=== PATIENT | female | born 1990 | race American Indian/Alaskan Native ===

== ENCOUNTER 2019-04-15 21:42 | Emergency (ER) | payer OTHER ==
[2019-04-15 22:03] VITALS: BP 133/72
[2019-04-15] MEDS ORDERED: TYLENOL PO ONE (22:03)
[2019-04-15] MEDS ORDERED: TYLENOL ONE (22:07)
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
[2019-04-16] MEDS ORDERED: ULTRAM PO ONE (02:07)
== END 2019-04-16 03:05 | disposition home or self-care (01) ==
LOC: ED 21:42
DX: S16.1XXA Strain of muscle, fascia and tendon at neck level, initial encounter (principal); M25.531 Pain in right wrist; M25.532 Pain in left wrist; I10 Essential (primary) hypertension; F32.9 Major depressive disorder, single episode, unspecified; Z98.890 Other specified postprocedural states; Z79.899 Other long term (current) drug therapy; Z91.018 Allergy to other foods; V89.2XXA Person injured in unspecified motor-vehicle accident, traffic, initial encounter; Y93.89 Activity, other specified; Y92.488 Other paved roadways as the place of occurrence of the external cause; Y99.8 Other external cause status
CPT/HCPCS: 72040; 99283

== ENCOUNTER 2021-02-06 19:22 | Outpatient (CLI) | payer MEDICAID ==
[2021-02-06] MEDS ORDERED: LACTATED RINGERS 500 ML IV ONE (20:39)
[2021-02-06 21:15] VITALS: BP 128/70
[2021-02-06] MEDS: TERBUTALINE 1 MG/1 ML INJ SUB-Q PRN ×3 (21:30→22:12)
[2021-02-06 21:33] LABS: Bacteria,Urine 1+ /HPF (Negative); Bilirubin,Urine NEG (Negative); Blood,Urine NEG (Negative); Color,Urine Straw (Yellow); Protein,Urine <15 mg/dL mg/dL (Negative); RBC,Urine < 1.0 /HPF (0.0-6.0); Urobilinogen,Urine < 2.0 mg/dL (<2.0)
[2021-02-06] MEDS ORDERED: LACTATED RINGERS 1,000 ML IV ONE (21:54)
== END 2021-02-06 23:50 | disposition home or self-care (01) ==
LOC: TRG 19:22 → LD 19:53 → TRG 23:50
PROVIDERS: ATTEND Obstetrics & Gynecology
DX: O62.9 Abnormality of forces of labor, unspecified (principal); O99.013 Anemia complicating pregnancy, third trimester; D64.9 Anemia, unspecified; Z3A.32 32 weeks gestation of pregnancy; Z87.891 Personal history of nicotine dependence
CPT/HCPCS: 59025; 81001; 96360; 96372; J3105; J7120

== ENCOUNTER 2021-02-07 14:41 | Outpatient (CLI) | payer MEDICAID ==
[2021-02-07 15:02] VITALS: BP 121/59
[2021-02-07] MEDS ORDERED: LACTATED RINGERS 1,000 ML IV SCH (15:15)
[2021-02-07 16:14] LABS: Bacteria,Urine 4+ /HPF (Negative); Bilirubin,Urine NEG (Negative); Blood,Urine NEG (Negative); Color,Urine Straw (Yellow); Protein,Urine <15 mg/dL mg/dL (Negative); Urobilinogen,Urine < 2.0 mg/dL (<2.0)
[2021-02-07 16:34] LABS: Amphetamine Screen,Urine PRESUMPTIVE NEGATIVE; Benzodiazepines Screen,Urine PRESUMPTIVE NEGATIVE; Cannabinoid Screen,Urine PRESUMPTIVE NEGATIVE; Cocaine Screen,Urine PRESUMPTIVE NEGATIVE; Methadone Screen,Urine PRESUMPTIVE NEGATIVE; Opiate Screen,Urine PRESUMPTIVE NEGATIVE
== END 2021-02-07 17:58 | disposition home or self-care (01) ==
LOC: TRG 14:41 → APU 14:43 → TRG 17:58
PROVIDERS: ATTEND Obstetrics & Gynecology
DX: O62.9 Abnormality of forces of labor, unspecified (principal); O99.013 Anemia complicating pregnancy, third trimester; D64.9 Anemia, unspecified; Z87.891 Personal history of nicotine dependence; Z3A.32 32 weeks gestation of pregnancy
CPT/HCPCS: 59025; 80307; 81001; 96360; 96361; J7120

== ENCOUNTER 2021-02-21 14:18 | Outpatient (CLI) | payer MEDICAID ==
[2021-02-21] MEDS ORDERED: LACTATED RINGERS 1,000 ML IV SCH (15:00)
[2021-02-21 15:03] VITALS: BP 118/58
[2021-02-21 16:05] LABS: Bacteria,Urine 1+ /HPF (Negative); Bilirubin,Urine NEG (Negative); Blood,Urine NEG (Negative); Color,Urine Yellow (Yellow); Protein,Urine <15 mg/dL mg/dL (Negative)
[2021-02-21] MEDS ORDERED: TERBUTALINE 1 MG/1 ML INJ SUB-Q ONE (17:26)
== END 2021-02-21 19:15 | disposition home or self-care (01) ==
LOC: TRG 14:18 → APU 14:20 → TRG 19:15
PROVIDERS: ATTEND Obstetrics & Gynecology
DX: O62.9 Abnormality of forces of labor, unspecified (principal); O26.893 Other specified pregnancy related conditions, third trimester; M54.9 Dorsalgia, unspecified; O99.343 Other mental disorders complicating pregnancy, third trimester; F41.9 Anxiety disorder, unspecified; F32.9 Major depressive disorder, single episode, unspecified; Z3A.34 34 weeks gestation of pregnancy; Z87.891 Personal history of nicotine dependence
CPT/HCPCS: 81001; 96360; 96361; 96372; J3105; J7120; Q0177

== ENCOUNTER 2021-03-18 01:08 | Inpatient (IN) | payer MEDICAID ==
[2021-03-18] MEDS ORDERED: LACTATED RINGERS 1,000 ML ONE (02:03)
[2021-03-18] MEDS ORDERED: METOCLOPRAMIDE 10 MG/2 ML INJ IV ONE (02:16)
[2021-03-18] MEDS ORDERED: FAMOTIDINE 20 MG/2 ML INJ IV ONE (02:16)
[2021-03-18] MEDS ORDERED: BICITRA ORAL LIQD 30ML PO ONE (02:16)
--- NOTE | 2021-03-18 02:28 | History and Physical Report ---
History of Present Illness Date of examination: 03/18/21 Date of admission: 03/18/2021 Chief complaint: contractions History of present illness: EDC Confirmation: 03/30/2021 Past History : 3 Term Births: 1 Premature Births: 0 Living Children: 1 Para: 1 Mult. Births: 0 Prev : 1 Prev. attempt? 0 Aborta: 1 Elect. Ab: 0 Spont. Ab: 1 Ectopics: 0 # 1 Delivery date: 2018 Weeks Gestation: term Delivery type: Anesthesia type: epidural Delivery location: [place] Sex: Male weight: 7 Name: Nii Comments: placenta abruption # 2 Delivery date: 2018 Weeks Gestation: 20 labor: yes Delivery type: Delivery location: [facility] [place] Infant Sex: Male weight: ? Name: michelle Past Medical History: Negative Past Medical History Depression Past Surgical History: negative Past Medical History Anesthesia Complications: negative Anemia: negative Autoimmune Disorder: negative Bleeding Disorder: negative Blood Transfusions: negative Breast Disease: negative Diabetes: negative Heart Disease: negative Hypertension: negative Hepatitis/Liver Disease: negative Kidney Disease/UTI: negative Neurologic/Epilepsy/Migraines: negative Phlebitis/Varicosities: negative Psychiatric: negative Pulmonary Disease/Asthma: negative Thyroid Disease: negative Hospitalizations: negative Surgery (Non-executive secretary social welfare): negative Abnormal PAP: negative GUSTAVO Exposure: negative Infertility: negative Uterine Anomaly: negative Uterine Surgery (not C/S): negative Other Gynecologic Problems: negative Infection History Hx of STD: chlamydia HIV Risk Eval: no Hepatitis B Risk Eval: low risk Personal hx. of genital herpes: yes Partner hx. of genital herpes: no Rash, Viral, or Febrile illness since last LMP? no Varicella/Chicken Pox Status: Previous Disease Infection History Comments: Trich Genetic History Congenital Heart Defect: Mom: no Dad: no Irma Disease: Mom: no Dad: no Thalassemia Mom: no Dad: no Neural Tube Defect Mom: no Dad: no Down's Syndrome Mom: no Dad: no Ra-Sachs Mom: no Dad: no Sickle Cell Disease/Trait Mom: yes Dad: no Comments: pt is NOT aware of this FOC status Hemophilia Mom: no Dad: no Muscular Dystrophy Mom: no Dad: no Cystic Fibrosis Mom: no Dad: no Kayleigh Chorea Mom: no Dad: no Mental Retardation Mom: no Dad: no Fragile X Mom: no Dad: no Other Genetic/Chromosomal Disorder Mom: no Dad: no Child w/other defect Mom: yes Dad: no Comments/Counseling: Son has SCD This baby's daddy was SCT + Enviromental Exposures Xray Exposure: no Medication, drug, or alcohol use since LMP: no Chemical/Other Exposure: no Exposure to Cat Liter: no Hx of Parvovirus (Fifth Disease): no Occupational Exposure to Children: none Active Medications (reviewed today): None Current Allergies (reviewed today): * DOGS (Critical) * SEASONAL ALLERGIES (Critical) * PINEAPPLE (Critical) * KIWI (Critical) * WALNUTS (Critical) Past History Past Medical History: other (see HPI) Past Surgical History: other (see HPI) 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) Family/Genetic History: other (see HPI) Social history: other (see HPI) - Obstetrical History Expected Date of Delivery: 03/30/21 Actual Gestation: 38 Week(s) 2 Day(s) : 3 Para: 1 Hx # Term Pregnancies: 1 Number of Pregnancies: 0 Spontaneous Abortions: 1 Induced : 0 Number of Living Children: 1 Medications and Allergies Allergies Allergy/AdvReac Type Severity Reaction Status Date / Time kiwi Allergy Itching Verified 04/15/19 22:00 pineapple [Pineapple] Allergy Itching Verified 04/15/19 22:00 Active Meds: Active Medications Citric Acid/Sodium Citrate (Bicitra Oral Liqd 30ml) 30 ml PO ONCE ONE Stop: 03/18/21 02:17 Cefazolin Sodium (Ancef/Sterile Water 2 Gm/20 Ml) 2 gm in 20 mls @ 80 mls/hr IV PREOP NR; Protocol Stop: 03/18/21 10:00 Lactated Ringer's (Lactated Ringers) 1,000 mls @ 2,250 mls/hr IV PREOP CAR Stop: 03/19/21 02:57 Oxytocin/Sodium Chloride (Pitocin/Ns 30 Unit/500ml) 30 units in 500 mls @ 0 mls/hr IV TITR CAR; Protocol Review of Systems All systems: negative Genitourinary: contractions - Vital Signs Vital signs: Vital Signs Pulse Pulse Ox 75 100 03/18/21 01:32 03/18/21 01:32 Temp Pulse Resp BP Pulse Ox 98.7 F 76 18 146/78 100 03/18/21 01:33 03/18/21 02:17 03/18/21 01:33 03/18/21 01:44 03/18/21 02:17 - Physical Exam Breasts: Positive: normal Cardiovascular: Regular rate Lungs: Positive: Normal air movement Abdomen: Positive: normal appearance, soft Genitourinary (Female): Positive: normal external genitalia, normal perenium Vulva: both: normal Vagina: Positive: normal moisture Uterus: Positive: normal size, normal contour Anus/Rectum: Positive: normal perianal skin Extremities: Positive: normal - Obstetrical FHR: auscultation normal, category 1 Uterine Contraction Monitor Mode: External Cervical Dilatation: 4 Cervical Effacement Percentage: 60 station: -2 Uterine Contraction Frequency (min): 2-6 Uterine Contraction Duration: 90-120 Uterine Contraction Pattern: Regular Uterine Tone Measurement Phase: Contraction Uterine Contraction Intensity: Moderate Results Result Diagrams: 03/18/21 02:00 All other labs normal. Tests: (1) Ct, Ng, Trich vag by LEI ([id number]) Order Note: Clinical Information: SRC:VR SRC:UR Chlamydia by LEI Negative Negative *1 Gonococcus by LEI Negative Negative *2 Trich vag by LEI Negative Negative *3 Tests: (2) Strep Gp B LEI ([id number]) ! Strep Gp B LEI Negative Negative *4 Document Creation Date: 03/03/2021 9:10 AM Tests: (1) Profile I ([id number]) Order Note: Clinical Information: SRC:UR HBsAg Screen Negative Negative *1 RPR Non Reactive Non Reactive *2 Rubella Antibodies, IgG 3.09 index Immune >0.99 *3 Non-immune <0.90 Equivocal 0.90 - 0.99 Immune >0.99 ABO Grouping B *4 Rh Factor Positive *5 Please note: Prior records for this patient's ABO / Rh type are not available for additional verification. Antibody Screen Negative Negative *6 WBC [H] 11.2 x10E3/uL 3.4-10.8 *7 RBC 4.87 x10E6/uL 3.77-5.28 *8 Hemoglobin [L] 9.6 g/dL 11.1-15.9 *9 Hematocrit [L] 32.7 % 34.0-46.6 *10 MCV [L] 67 fL 79-97 *11 MCH [L] 19.7 pg 26.6-33.0 *12 MCHC [L] 29.4 g/dL 31.5-35.7 *13 RDW [H] 18.9 % 11.7-15.4 *14 Platelets 236 x10E3/uL 150-450 *15 Neutrophils 81 % Not Estab. *16 Lymphs 15 % Not Estab. *17 Monocytes 4 % Not Estab. *18 Eos 0 % Not Estab. *19 Basos 0 % Not Estab. *20 ! Immature Cells <No Reported Value> *21 Neutrophils (Absolute) [H] 8.9 x10E3/uL 1.4-7.0 *22 Lymphs (Absolute) 1.7 x10E3/uL 0.7-3.1 *23 Monocytes(Absolute) 0.4 x10E3/uL 0.1-0.9 *24 Eos (Absolute) 0.0 x10E3/uL 0.0-0.4 *25 Baso (Absolute) 0.0 x10E3/uL 0.0-0.2 *26 ! Immature Granulocytes 0 % Not Estab. *27 ! Immature Grans (Abs) 0.0 x10E3/uL 0.0-0.1 *28 ! NRBC <No Reported Value> *29 Hematology Comments: <No Reported Value> *30 Tests: (2) AFP Tetra ([id number]) ! Results Report *31 ! Test Results: *Screen Negative* *32 ! Gest. Age on Collection Date 17.4 WEEKS *33 ! Gestat. Age Based On Ultrasound *34 17.4 on 10/26/2020 ! M[age]E [age] *35 ! Race Black *36 ! Weight 165 lbs *37 ! Insulin Dep Diabetes No *38 ! Multiple Gestation No *39 ! AFP Value 33.5 ng/mL *40 ! AFP MoM 0.81 *41 ! hCG Value 25758 mIU/mL *42 ! hCG MoM 0.49 *43 ! uE3 Value 1.74 ng/mL *44 ! uE3 MoM 1.38 *45 ! PRACHI Value 162.65 pg/mL *46 ! PRACHI MoM 1.07 *47 ! OSBR [place] 1 [place] [address] *48 ! DSR (Second Trimester) 1 [place] [address] *49 ! DSR (By Age) 1 IN 805 *50 ! T18 Risk Not increased *51 ! T18 (By Age) 1:3134 *52 ! Interpretation NL42 *53 Interpretation: Screen Negative This result is screen negative for OSB, Down Syndrome and Trisomy 18. The AFP MoM and patient specific risks calculated are based on the gestational age and the clinical information provided. This test can identify up to 80% of open neural tube defects. Closed neural tube defects and some open defects may not be detected by this test. The combination of maternal age, AFP, hCG, uE3, and PRACHI identifies 75-80% of Down Syndrome. The combination of maternal age, AFP, hCG and uE3 identifies 60% of Trisomy 18 pregnancies. The [employer] recommends amniocentesis be offered to women age 35 and older. Recalculations are not recommended when gestational dating by LMP and ultrasound are within 10 days. ! Comments: [facility] *54 Antonia Pichardo, Ph.D., [facility] Director References: Available Upon Request. Multiples Of Median Cutoffs Abbreviation Definitions For AFP Elevations IDD- Insulin Dep Diabetes Cherry 2.5 Black 2.8 OSBR- Open Spina Bifida IDD 2.0 Twins 4.5 Risk DSR Cutoff 1:270 DSR- Down Syndrome Risk T18 Cutoff 1:100 T18- Trisomy 18 Down Syndrome and Trisomy 18 screening are considered Investigational For further inquiries contact [facility] at [phone]. Tests: (3) HB Solu + Rflx Frac ([id number]) Hemoglobin (Hgb) Solubility [A] Positive Negative *55 Tests: (4) Hemoglobin Frac.w/o Solubility ([id number]) ! Hgb F 0.0 % 0.0-2.0 *56 ! Hgb A [L] 66.1 % 96.4-98.8 *57 ! Hgb S [H] 31.0 % 0.0 *58 ! Hgb C 0.0 % 0.0 *59 ! Hgb A2 2.9 % 1.8-3.2 *60 ! Hgb Variant <No Reported Value> *61 ! Interpretation HGAS1 *62 Hemoglobin pattern and concentration are consistent with sickle cell trait (heterozygous). Suggest clinical and hematologic correlation. Sickle Trait Interpretation Ranges Hgb A 50.0 - 70.0% Hgb S 30.0 - 45.0% Hgb A2 3.0 - 5.0%* *Hgb A2 values are seen to be increased over normal levels. This increase is typically due to interference from co-eluting Hgb S-subunits with the HPLC method and therefore the Hgb A2 interpretation ranges have been adjusted. Tests: (5) HIV Ag/Ab with Reflex ([id number]) HIV Screen 4th Generation wRfx Non Reactive Non Reactive *63 Tests: (6) HCV Ab w/Rflx to Verification ([id number]) ! HCV Ab <0.1 s/co ratio 0.0-0.9 *64 Tests: (7) Comment: ([id number]) ! Comment: SPRCS *65 Non reactive HCV antibody screen is consistent with no HCV infection, unless recent infection is suspected or other evidence exists to indicate HCV infection. Tests: (8) Urine Culture, Routine ([id number]) Urine Culture, Routine Final report *66 Tests: (9) Result ([id number]) ! Result 1 MUG *67 Mixed urogenital tang 10,000-25,000 colony forming units per mL Performed At: , [facility] [address] [place] [address] [id number] Hugh Cartagena MD Phone: [phone] Performed At: , [facility] [address] [place], [place] [id number] Sammy Regan [facility] Phone: [phone] Note: An exclamation brandy (!) indicates a result that was not dispersed into the flowsheet. Document Creation Date: 10/31/2020 10:18 AM Assessment and Plan Pt presents to triage with c/o contractions off and on since 0 last night. Pt reports she was able to rest intermittently. SVE 4/60/-2 per RN and pt currently salvatore q2-6mins; Cat 1 FHT's. Pt reports H/O Previous C/S delivery. Pt reports signing BTL consents in office, however she does not desire tubal at this time. Dr. Brown notified and en route to hospital. Pt consented for Rpt C/S and orders placed in EMR. - Patient Problems (1) Active labor at term Current Visit: Yes Status: Acute (2) 38 weeks gestation of Current Visit: Yes Status: Acute (3) Sickle cell trait Current Visit: Yes Status: Acute (4) Previous section Current Visit: Yes Status: Acute
[2021-03-18] MEDS ORDERED: LACTATED RINGERS 1,000 ML IV SCH (02:30)
--- NOTE | 2021-03-18 02:30 | Anesthesia Day of Surgery ---
Anesthesia Day of Surgery - Day of Surgery Patient Examined: Yes Patient H&P Reviewed: Yes Patient is NPO: Yes Beta Blockers: No Cardiac Clearance: No Pulmonary Clearance: No Ronen's Test: N/A
[2021-03-18] MEDS ORDERED: NALOXONE 0.4 MG/1 ML INJ IV PRN ×2 (02:32→04:00)
[2021-03-18] MEDS ORDERED: HYDROmorphone 1 MG/1 ML INJ IV PRN (02:32)
[2021-03-18] MEDS ORDERED: ONDANSETRON 4 MG/2 ML INJ IV PRN (02:32)
--- NOTE | 2021-03-18 02:32 | Anesthesia Consultation ---
Anesthesia Consult and Med Hx Date of service: 03/18/21 - Airway Anesthetic Teeth Evaluation: Poor ROM Head & Neck: Adequate Mental/Hyoid Distance: Adequate Mallampati Class: Class II Intubation Access Assessment: Probably Good - Pulmonary Exam CTA: Yes - Cardiac Exam Cardiac Exam: RRR - Pre-Operative Health Status ASA Pre-Surgery Classification: ASA2, Emergency Proposed Anesthetic Plan: Epidural, Spinal - Pulmonary Hx Smoking: Yes (quit 2017) Hx Asthma: No Hx Respiratory Symptoms: No SOB: No COPD: No Home Oxygen Therapy: No Hx Pneumonia: No Hx Sleep Apnea: No - Cardiovascular System Hx Hypertension: Yes (2018) Hx Coronary Artery Disease: No Hx Heart Attack/AMI: No Hx Angina: No Hx Percutaneous Transluminal Coronary Angioplasty (PTCA): No Hx Cardia Arrhythmia: No Hx Pacemaker: No Hx Internal Defibrillator: No Hx Valvular Heart Disease: No Hx Heart Murmur: No Hx Peripheral Vascular Disease: No - Central Nervous System Hx Neuromuscular Disorder: No Hx Seizures: No CVA: No Hx Back Pain: No Hx Psychiatric Problems: Yes ( depression 2017) - Gastrointestinal Hx Ulcer: No Hx Gastroesophageal Reflux Disease: No - Endocrine Hx Renal Disease: No Hx End Stage Renal Disease: No Hx Cirrhosis: No Hx Liver Disease: No Hx Insulin Dependent Diabetes: No Hx Non-Insulin Dependent Diabetes: No Hx Hypothyroidism: No Hx Hyperthyroidism: No - Hematic Hx Anemia: Yes Hx Sickle Cell Disease: Yes (Trait) - Other Systems Hx Alcohol Use: No Hx Substance Use: Yes Hx Cancer: No Hx Obesity: No
[2021-03-18 02:34] LABS: Basophils % (Auto) 0.2 % (0.0-1.8); Eosinophils % (Auto) 0.4 % (0.0-4.3); Hemoglobin 8.6 gm/dl (10.1-14.3); Mean Corpuscular HGB Conc 31 % (30-34); Mean Corpuscular Volume 64 fl (79-97); Monocytes # (Auto) 0.7 K/mm3 (0.0-0.8); Monocytes % (Auto) 5.9 % (0.0-7.3); Platelet Count 201 K/mm3 (140-440); Red Blood Count 4.37 M/mm3 (3.65-5.03); Red Cell Distribution Width 19.1 % (13.2-15.2)
[2021-03-18] MEDS ORDERED: METHYLERGONOVINE MALEATE 0.2 MG/ML VIAL IM ONE ×2 (02:34→05:53)
[2021-03-18] MEDS ORDERED: OXYTOCIN DRIP 30 UNITS/500 ML BAG IV SCH (03:00)
[2021-03-18] MEDS ORDERED: ONDANSETRON 4 MG/2 ML INJ ONE (03:00)
[2021-03-18] MEDS ORDERED: ceFAZolin/Water 2 GM/20 ML 2 GM/20 ML SYRINGE IV NR (03:00)
[2021-03-18] MEDS ORDERED: KETOROLAC 30 MG/1 ML INJ ONE (03:00)
[2021-03-18] MEDS ORDERED: SODIUM CHLORIDE 0.9% 500 ML 500 ML IV ONE (03:04)
[2021-03-18] MEDS ORDERED: ceFAZolin 1 GM VIAL IV ONE (03:11)
[2021-03-18] MEDS ORDERED: .SODIUM CHLORIDE 0.9% IRRIG SOLN 3000 ML IR ONE (03:16)
[2021-03-18] MEDS ORDERED: dexAMETHasone 20 MG/5 ML VIAL ONE (03:26)
[2021-03-18] MEDS ORDERED: BUPIVACAINE/PF (0.5%) 5 MG/1 ML 30 ML VIAL INFILTRATI ONE (03:26)
[2021-03-18] MEDS ORDERED: SODIUM CHLORIDE 0.9% 100 ML ONE (03:27)
--- NOTE | 2021-03-18 03:58 | Operative Report ---
Operative Report Operative Report: Date of procedure: 03/18/2021 Pre-operative diagnosis: 38 weeks gestation Active labor Previous section x1 Anemia Post-operative diagnosis: Same Procedure name(s): Repeat low transverse section via Pfannenstiel skin incision Surgeon: Dr. Brown Brand Sales Consultant: MCKAY Anesthesia: Spinal epidural QBL: 902ml initially provider was told 362ml was QBL Urine output: 200ml of clear urine out at the end of the procedure Fluids: 800ml Findings: Liveborn female 7 pounds 8 ounces Apgars of 8 and 9 at 1 and 5 minutes Well-developed lower uterine segment Grossly normal fallopian tubes and ovaries bilaterally Indications: Patient presented complaining of contractions and was noted to be in active labor. All risk benefits and alternatives were discussed with the patient. Consents were signed and placed on the chart. Procedure: Patient was taking to the operating room. Patient was then prepped and draped in sterile fashion after anesthesia was found to be adequate. A low transverse skin incision was made with the scalpel through previous incisional scar and carried down to the underlying layer of fascia with the Bovie. The fascia was then incised in the midline and this incision was extended bilaterally with the Bovie. The superior aspect of the fascia was grasped with Donis clamps tented upward and dissected off of the anterior rectus muscles with the scalpel. In similar fashion the inferior aspect of the fascia was grasped with Donis clamps tented upward and dissected off of the anterior rectus muscles. The rectus muscles were then bluntly divided in the midline. The peritoneum was identified and entered into sharply. The Javon retractor was placed. The bladder blade was placed. A lower transverse uterine incision was made with the scalpel and extended bilaterally with the bandage scissors. Artificial rupture of membranes was performed yielding [clear amniotic fluid]. The infant's head was then delivered atraumatically. The anterior shoulder and rest of delivered without difficulty. The umbilical cord was clamped x2. The cord was cut. The was then placed in sterile bassinet. [The cord blood was collected]. The placenta was manually extracted in its entirety. The uterus was exteriorized and cleared of all clots and debris. The uterine incision was closed using 0 Vicryl in a running locking fashion. [ A second imbricating layer of the same suture was then created.] The posterior cul-de-sac was copiously irrigated. The uterus was returned to the abdomen. The gutters were also irrigated. He mobilized was applied to the uterine incision with excellent hemostasis noted. The anterior rectus muscles were reapproximated using 3-0 Vicryl. The anterior rectus fascia was reapproximated using 0 Vicryl in a running fashion. The subcuticular fat was reapproximated using 2-0 Vicryl in a running fashion. The skin was reapproximated with 4-0 Monocryl in a subcuticular stitch. The patient tolerated the procedure well. Sponge lap and needle counts were all correct x3. Patient was taken to the recovery room awake and in stable condition.
[2021-03-18] MEDS ORDERED: WITCH HAZEL/ GLYCERIN PAD TP PRN (04:00)
[2021-03-18] MEDS ORDERED: D5W/LACTATED RINGERS 1,000 ML IV SCH (04:00)
[2021-03-18] MEDS ORDERED: LANOLIN/ZINC/DIMETHICONE (LANSINOH) 7 GM TP PRN (04:00)
[2021-03-18] MEDS ORDERED: KETOROLAC 30 MG/1 ML INJ IV PRN (04:00)
[2021-03-18] MEDS ORDERED: ACETAMINOPHEN 325 MG TAB PO PRN (04:01)
[2021-03-18] MEDS ORDERED: SIMETHICONE 80 MG CHEW TAB PO PRN (04:01)
--- NOTE | 2021-03-18 04:30 | Progress Note ---
Spinal Anesthesia Block - Spinal Anesthesia Block Start Time: 03:00 Stop Time: 03:03 Performed by:: PAT MIRZA Procedure: Patient IDed, H&P reviewed, all questions and concerns were answered, and consent was signed. Timeout was performed at bedside. Patient in sitting position. Sterile prep and drape was performed. [3] ml of 1% lidocaine skin wheal at L[3]- L [4]. Needle introducer advanced. 25 gauge spinal needle advanced. Clear, free flowing CSF. negative blood, negative paresthesia. Spinal dose given. All needles removed. Patient tolerated procedure.
--- NOTE | 2021-03-18 04:31 | Progress Note ---
Regional Anesthesia Block - Regional Anesthesia Block Start Time: 04:02 Stop Time: 04:15 Performed By:: PAT MIRZA Procedure: Patient consented for TAP block for post surgical pain management. Patient identified, monitors placed, and time out performed. TAP identified bilaterally via ultrasound. Skin prepped bilaterally with [chlorhexidine] and [22g stimuplex] needle advanced to the TAP. [Marcaine 0.22% 35ml] injected under ultrasound guidance on the [left] side. [Marcaine 0.22% 35ml] injected under ultrasound guidance on the [right] side. Negative aspiration every 5mL, No change in heart rate or rhythm. Patient tolerated the procedure well. No apparent complications seen.
[2021-03-18] MEDS: ceFAZolin/NS 1 GM/50 ML 1 GM/50 ML BAG IV SCH ×2 (06:30→14:22)
[2021-03-18] MEDS: HYDROcodone/ACETAMINOPHEN 5-325 MG TAB PO PRN ×4 (07:15→21:20)
[2021-03-18] MEDS: FERROUS SULFATE 325 MG TAB PO SCH (09:39)
[2021-03-18 15:50] LABS: Hematocrit 27.7 % (30.3-42.9); Hemoglobin 8.6 gm/dl (10.1-14.3)
[2021-03-19] MEDS: IBUPROFEN 800 MG TAB PO PRN ×3 (00:06→13:40)
[2021-03-19] MEDS: HYDROcodone/ACETAMINOPHEN 5-325 MG TAB PO PRN ×4 (01:53→22:09)
[2021-03-19] MEDS ORDERED: IBUPROFEN 800 MG TAB PO PRN (04:00)
[2021-03-19] MEDS ORDERED: TETANUS,DIPH,PERTUSS(ACELL) VACCINE 0.5 ML SYRINGE IM ONE (04:01)
--- NOTE | 2021-03-19 06:13 | Post Anesthesia Evaluation ---
- Post Anesthesia Evaluation Patient Participated: Yes Airway Patent: Yes Stable Respiratory Function: Yes Nausea/Vomiting: No Temp > 96.8F: Yes Pain Manageable: Yes Adequeate Hydration: Yes Anesthesia Complications: No Block Receding Appropriately: Yes Patient on Ventilator: No
--- NOTE | 2021-03-19 06:43 | Progress Note ---
Assessment and Plan Pt OOB to toilet. Denies any issues with voiding. VSS H&H 05/24 chronic anemia Pt is asymptomatic. Doing well s/p repeat c/s P: continue pathway Advance diet and activity as tolerated Subjective - Subjective Date of service: 03/19/21 (OOB to toilet; c/o some abdominal discomfort) Principal diagnosis: Day # 1 s/p repeat c/s Patient reports: appetite normal, voiding normally, pain well controlled, ambulating normally : doing well Objective - Vital Signs Latest vital signs: Vital Signs Temp Pulse Resp BP BP Pulse Ox 03/19/21 05:35 20 03/19/21 01:53 20 03/19/21 00:45 98.3 F 52 L 16 114/57 100 03/19/21 00:06 18 03/18/21 22:10 97.9 F 55 L 18 130/60 99 03/18/21 21:20 20 03/18/21 16:16 97.2 F L 60 16 124/59 100 03/18/21 16:15 16 03/18/21 13:06 16 03/18/21 11:47 97.5 F L 59 L 16 118/56 98 03/18/21 09:38 16 03/18/21 08:19 97.7 F 60 16 110/61 99 Intake and Output 03/18/21 03/18/21 03/19/21 14:59 22:59 06:59 Intake Total 370 240 200 Output Total 800 350 400 Balance -430 -110 -200 Intake: IV 50 ANCEF/NS 1 GM/50 ML 1 gm 50 In 50 ml @ 100 mls/hr IV Q8H [facility] Rx#:[id number] Oral 320 200 Intake, Free Water 240 Output: Urine 800 350 400 Indwelling Catheter 800 100 Void 250 400 Other: Total, Intake Amount 200 200 Total, Output Amount 800 250 400 # Voids Void 1 - Exam Breasts: Present: normal Cardiovascular: Present: Regular rate Lungs: Present: Normal air movement Abdomen: Present: normal appearance, soft, normal bowel sounds Extremities: Present: normal Incision: Present: normal, dry, intact, dressed (to be removed this AM) - Labs Labs: Abnormal lab results 03/18/21 Range/Units 15:31 Hgb 8.6 L (10.1-14.3) gm/dl Hct 27.7 L (30.3-42.9) %
[2021-03-19] MEDS: FERROUS SULFATE 325 MG TAB PO SCH (13:30)
[2021-03-20] MEDS: IBUPROFEN 800 MG TAB PO PRN ×2 (01:45→13:23)
[2021-03-20] MEDS: HYDROcodone/ACETAMINOPHEN 5-325 MG TAB PO PRN (08:21)
--- NOTE | 2021-03-20 08:22 | Discharge Summary ---
Providers - Providers Date of Admission: 03/18/21 02:19 Date of discharge: 03/20/21 (Pt agrees to discharge home.) Attending physician: VENKATA MONTANEZ Primary care physician: VENKATA MONTANEZ Hospitalization Reason for admission: active labor Delivery: Procedure: repeat low transverse Episiotomy: none Laceration: none Incision: normal, dry, intact Other procedures: none complications: none Discharge diagnosis: IUP at term delivered baby: female Hospital course: S: Pt doing well. Still having some soreness, but states pain medication is helping. Ambulating, voiding, and passing flatus okay. BC: None. O: VSS. Adequate I&O's. H/H 8.6/27.7, asymptomatic anemia of delivery. Incision intact, no s/sx of infection and no drainage noted. A: 30 y.o. s/p rpt @ term, in good condition and can be discharged home. P: Discharge home with instructions. Pt to scheduled an incision check in the office in 1 week. Condition at discharge: Good Disposition: DC-01 TO HOME OR SELFCARE Plan - Discharge Medications Prescriptions: Docusate Sodium [Colace] 100 mg PO BID PRN #60 capsule PRN Reason: Constipation Ferrous Sulfate [Feosol 325 MG tab] 325 mg PO QDAY #60 tablet Ibuprofen [Motrin 800 MG tab] 800 mg PO Q8HR PRN #30 tablet PRN Reason: Pain, Moderate (4-6) oxyCODONE /ACETAMINOPHEN [Percocet 5/325] 1 tab PO Q4HR #30 tab - Provider Discharge Summary Activity: routine, no sex for 6 weeks, no heavy lifting 4 weeks, no strenuous exercise Diet: routine Instructions: routine Additional instructions: [] Smoking cessation referral if applicable(refer to patient education folder for contact #) [] Refer to [facility] Booklet Call your doctor immediately for: * Fever > 100.5 * Heavy vaginal bleeding ( >1 pad per hour) * Severe persistent headache * Shortness of breath * Reddened, hot, painful area to leg or breast * Drainage or odor from incision. * Keep incision clean and dry at all times and follow doctor's instructions regarding bathing/showering Congratulations on your baby girl! Thank you for allowing us to take care of you. Please schedule an incision check in the office in 1 week. Please take medication as directed by your provider. Should you have any questions or concerns after discharge, please do not hesitate to call the office at [phone]. - Follow up plan Follow up: VENKATA MONTANEZ MD [Primary Care Provider] - 7 Days
[2021-03-20] MEDS: FERROUS SULFATE 325 MG TAB PO SCH (10:26)
[2021-03-20 13:07] VITALS: BP 109/62
== END 2021-03-20 14:20 | disposition home or self-care (01) | DRG 766 ==
LOC: APU 01:08 → TRG 01:08 → APU 02:19 → TRG 02:44 → OB 05:40
PROVIDERS: ADMIT Obstetrics & Gynecology; ATTEND Obstetrics & Gynecology
PROC: 10D00Z1 Extraction of Products of Conception, Low, Open Approach (ICD-10-PCS; principal; 2021-03-18)
PROC: 3E0234Z Introduction of Serum, Toxoid and Vaccine into Muscle, Percutaneous Approach (ICD-10-PCS; 2021-03-19)
DX: O34.211 Maternal care for low transverse scar from previous cesarean delivery (principal); O16.4 Unspecified maternal hypertension, complicating childbirth; O99.02 Anemia complicating childbirth; Z20.822 Contact with and (suspected) exposure to COVID-19; D57.3 Sickle-cell trait; Z87.891 Personal history of nicotine dependence; Z3A.38 38 weeks gestation of pregnancy; Z37.0 Single live birth; D64.9 Anemia, unspecified; Z23 Encounter for immunization
CPT/HCPCS: 36415; 59025; 85014; 85018; 85025; 86592; 86850; 86900; 86901; 86920; G0378; A4217; J0690; J1100; J1170; J1885; J2405; J2765; J3490; J7040; J7120; J7121; P9016; U0003

== ENCOUNTER 2021-03-22 14:08 | Emergency (ER) | payer MEDICAID | END 2021-03-22 14:38 | disposition left against medical advice (07) | LOC: ED 14:08 ==

== ENCOUNTER 2021-03-26 16:54 | Inpatient (IN) | payer MEDICAID ==
--- NOTE | 2021-03-26 17:16 | History and Physical Report ---
<NIMANUHA D - Last Filed: 03/26/21 17:48> History of Present Illness Date of admission: 03/26/21 17:20 Medications and Allergies Allergies Allergy/AdvReac Type Severity Reaction Status Date / Time kiwi Allergy Itching Verified 03/26/21 17:52 pineapple [Pineapple] Allergy Itching Verified 03/26/21 17:52 Home Medications Medication Instructions Recorded Confirmed Last Taken Type Docusate Sodium [Colace] 100 mg PO BID PRN #60 capsule 03/18/21 03/27/21 Unknown Rx Ferrous Sulfate [Feosol 325 MG tab] 325 mg PO QDAY #60 tablet 03/18/21 03/27/21 Unknown Rx Ibuprofen [Motrin 800 MG tab] 800 mg PO Q8HR PRN #30 tablet 03/18/21 03/27/21 Unknown Rx oxyCODONE /ACETAMINOPHEN [Percocet 1 tab PO Q4HR #30 tab 03/18/21 03/27/21 Unknown Rx 5/325] Active Meds: Active Medications Lactated Ringer's (Lactated Ringers) 1,000 mls @ 125 mls/hr IV DIRECT CAR Labetalol HCl (Labetalol 100 Mg Tab) 100 mg PO BID CAR Results All other labs normal. <YESENIA WEST - Last Filed: 03/27/21 05:22> History of Present Illness Date of examination: 03/26/21 (pt sent from office with elevated BP and XIE PP s/p section) History of present illness: CC: swelling and headache. History of Present Illness: pt presents for post op incision check: c/o (L)hand, leg and foot swelling. Headache x2 days, Tylenol nor low dose asprin not helping.............................. ........................................Molly Shane March 26, 2021 3:39 PM Mask, Patient denies fever, cough, shortness of breath and exposure to COVID-19. Pt here for post op incision check. She was seen in ED on Edd 06/25/21 for having swelling in lower ext. work up for preE including bp was normal. Pt states headache stared 2 days ago and she has not had any relief. She denies any vision changes at this time. She does state after 1st she had to be started on bp meds for elevated blood pressures. Repeat bp noted and pt has elevation times two several minutes apart. Pt will be admitted to labor and delivery for MgSO4 and bp managment. Provider mailing section clerk aware pt going to labor and delivery. Risk of ecclampsia were d/w pt and questions were addressed and answered. spoke with Renetta matthew nurse made aware of pt Will call when pt arrives so orders can be placed in EMR ...................................................................Mari West CNM March 26, 2021 4:23 PM Past History Past Surgical History: section Family/Genetic History: sickle cell/trait - Obstetrical History : 3 Medications and Allergies Active Meds: Active Medications Lactated Ringer's (Lactated Ringers) 1,000 mls @ 125 mls/hr IV DIRECT CAR Review of Systems All systems: negative Constitutional: fatigue, weakness Eyes: deferred Ears, nose, mouth and throat: deferred Breasts: normal, Genitourinary: deferred Rectal Exam: deferred Integumentary: deferred Neurological: headaches - Physical Exam Breasts: Positive: normal, Cardiovascular: Regular rate Lungs: Positive: Clear to auscultation Abdomen: Positive: normal appearance Uterus: Positive: normal size Extremities: Positive: edema Deep Tendon Reflex Grade: Normal but brisk +3 Results Result Diagrams: 03/26/21 17:42 03/26/21 17:42 All other labs normal. all labs noted in previous H&P Assessment and Plan 30yo s/p section X 7 days PP PreE Sent from office with elevated BPs and worsening XIE. All orders in EMR Dr [address]. - Patient Problems (1) Headache Onset Date: ~03/26/21 Current Visit: No Status: Acute Qualifiers: Headache chronicity pattern: acute headache Plan to address problem: Pt thinks XIE is r/t stress.BPs elevated today in office MGSO4 for neuro protection. Will give Tylenol po (2) Pre-eclampsia, Onset Date: ~03/26/21 Current Visit: No Status: Acute Plan to address problem: Pt admitted to L&D for MGSO4 X 24hr Labetalol 100mg po BID BP parameters monitored
[2021-03-26] MEDS ORDERED: MAGNESIUM SULFATE 4 GM/100 ML BAG IV ONE ×2 (18:13→20:46)
[2021-03-26 18:18] LABS: Mean Corpuscular HGB Conc 29 % (30-34); Platelet Count 312 K/mm3 (140-440); Red Blood Count 4.59 M/mm3 (3.65-5.03)
[2021-03-26 18:19] LABS: Hematocrit 31.8 % (30.3-42.9); Hemoglobin 9.4 gm/dl (10.1-14.3); Mean Corpuscular Volume 69 fl (79-97); Red Cell Distribution Width 24.6 % (13.2-15.2)
[2021-03-26 18:28] LABS: INR 0.96 (0.87-1.13)
[2021-03-26 18:29] LABS: Partial Thromboplastin Time 31.9 Sec. (24.2-36.6)
[2021-03-26] MEDS: LACTATED RINGERS 1,000 ML IV SCH (18:37)
[2021-03-26 19:00] LABS: BUN/Creatinine Ratio 10; Blood Urea Nitrogen 8 mg/dL (7-17); Hemolysis Index 4
[2021-03-26 19:04] LABS: Alanine Aminotransferase 10 units/L (7-56)
--- NOTE | 2021-03-26 19:52 | Event Note ---
Date: 03/26/21 Received call from Renetta, L&D assistant womens volleyball coach stating MgSO4 cannot be started due to the policies and safety of Mother and baby. Order given to start MgSO4 and to call [facility] for help with the baby.
[2021-03-26] MEDS: hydrALAZINE 20 MG/1 ML INJ IV PRN ×2 (20:43→20:53)
[2021-03-26] MEDS: MAGNESIUM SULFATE 40GM/1000ML 40 GM/1,000 ML BAG IV SCH (21:19)
[2021-03-26 21:52] LABS: Bilirubin,Urine NEG (Negative); Blood,Urine NEG (Negative); Color,Urine Yellow (Yellow); Mucus,Urine FEW /HPF; Protein,Urine <15 mg/dL mg/dL (Negative)
[2021-03-26] MEDS ORDERED: NIFEdipine XL 60 MG TAB PO SCH (22:00)
[2021-03-26] MEDS: FAMOTIDINE 20 MG TAB PO SCH (22:17)
[2021-03-26] MEDS ORDERED: KETOROLAC 30 MG/1 ML INJ ONE (22:21)
[2021-03-27] MEDS: ACETAMINOPHEN 500 MG TAB PO PRN ×2 (00:40→08:50)
[2021-03-27] MEDS: LACTATED RINGERS 1,000 ML IV SCH (03:16)
--- NOTE | 2021-03-27 07:55 | Progress Note ---
Assessment and Plan Pt c/o XIE unrelieved by Tylenol; VSS, denies chest pain and vision changes. Incision clean dry and intact and vaginal bleeding scant. IV fluids + Magnesium currently infusing and will draining adequate amounts of clear yellow urine. DR. Brown consulted and CT scan ordered. POC reviewed with pt and RN. EMR reviewed. RN confirms last Tylenol dose given @0040. All questions addressed. - Patient Problems (1) Headache Onset Date: ~03/26/21 Current Visit: No Status: Acute Qualifiers: Headache chronicity pattern: acute headache Plan to address problem: CT scan ordered (2) Pre-eclampsia, Onset Date: ~03/26/21 Current Visit: No Status: Acute Plan to address problem: Mag [id number] Procardia as ordered Close monitoring for SSx and changes in status (3) Previous section Current Visit: No Status: Acute Subjective - Subjective Date of service: 03/27/21 Principal diagnosis: headache, readmit for preeclampsia, previous Patient reports: pain poorly controlled (pt states she received Tylenol for a headache "one hour ago" and has not had any relief) Objective - Vital Signs Latest vital signs: Vital Signs Temp Pulse Resp BP Pulse Ox 03/27/21 07:49 98 H 97 03/27/21 07:44 97 H 97 03/27/21 07:39 100 H 97 03/27/21 07:34 115 H 98 03/27/21 07:29 103 H 97 03/27/21 07:26 109 H 127/61 03/27/21 07:24 97 H 97 03/27/21 07:19 98 H 97 03/27/21 07:14 97 H 97 03/27/21 07:09 100 H 97 03/27/21 07:04 100 H 97 03/27/21 06:59 101 H 97 03/27/21 06:54 97 H 97 03/27/21 06:49 98 H 97 03/27/21 06:44 104 H 97 03/27/21 06:39 101 H 97 03/27/21 06:34 102 H 97 03/27/21 06:29 101 H 97 03/27/21 06:26 100 H 114/59 03/27/21 06:24 99 H 97 03/27/21 06:19 98 H 97 03/27/21 06:14 103 H 97 03/27/21 06:09 101 H 97 03/27/21 06:04 103 H 97 03/27/21 05:59 100 H 97 03/27/21 05:54 96 H 97 03/27/21 05:49 95 H 97 03/27/21 05:44 103 H 97 03/27/21 05:39 99 H 97 03/27/21 05:34 101 H 97 03/27/21 05:29 119 H 98 03/27/21 05:26 103 H 123/62 03/27/21 05:24 105 H 97 03/27/21 05:19 111 H 97 03/27/21 05:14 108 H 97 03/27/21 05:12 97.9 F 16 03/27/21 05:09 102 H 97 03/27/21 05:04 109 H 97 03/27/21 04:59 103 H 97 03/27/21 04:54 100 H 97 03/27/21 04:49 108 H 96 03/27/21 04:44 97 H 97 03/27/21 04:39 101 H 97 03/27/21 04:34 98 H 97 03/27/21 04:29 93 H 97 03/27/21 04:26 94 H 109/56 03/27/21 04:24 97 H 96 03/27/21 04:19 95 H 97 03/27/21 04:14 96 H 97 03/27/21 04:09 105 H 97 03/27/21 04:04 107 H 97 03/27/21 03:59 111 H 97 03/27/21 03:54 109 H 97 03/27/21 03:49 105 H 97 03/27/21 03:44 103 H 97 03/27/21 03:39 104 H 97 03/27/21 03:34 97 H 97 03/27/21 03:29 93 H 97 03/27/21 03:26 90 117/59 03/27/21 03:24 92 H 97 03/27/21 03:19 92 H 98 03/27/21 03:14 89 98 03/27/21 03:09 88 99 03/27/21 03:04 88 98 03/27/21 02:59 86 98 03/27/21 02:54 85 98 03/27/21 02:49 84 98 03/27/21 02:44 83 98 03/27/21 02:39 87 97 03/27/21 02:34 86 97 03/27/21 02:29 84 97 03/27/21 02:26 78 128/63 03/27/21 02:24 80 97 03/27/21 02:19 82 97 03/27/21 02:14 80 98 03/27/21 02:09 79 99 03/27/21 02:04 85 98 03/27/21 01:59 87 99 03/27/21 01:54 86 98 03/27/21 01:49 82 98 03/27/21 01:44 83 97 03/27/21 01:39 79 98 03/27/21 01:34 79 97 03/27/21 01:29 79 98 03/27/21 01:26 69 140/67 03/27/21 01:24 79 98 03/27/21 01:19 76 97 03/27/21 01:14 81 97 03/27/21 01:09 80 97 03/27/21 01:04 81 97 03/27/21 00:59 81 97 03/27/21 00:54 80 97 03/27/21 00:49 81 97 03/27/21 00:44 77 99 03/27/21 00:40 98.1 F 18 03/27/21 00:39 79 99 03/27/21 00:36 46 L 71 L 03/27/21 00:34 80 99 03/27/21 00:29 85 100 03/27/21 00:26 85 141/82 03/27/21 00:24 84 100 03/27/21 00:19 100 H 98 03/27/21 00:14 77 99 03/27/21 00:09 77 100 03/27/21 00:04 75 100 03/26/21 23:59 77 100 03/26/21 23:54 77 100 03/26/21 23:49 79 99 03/26/21 23:44 82 99 03/26/21 23:39 81 100 03/26/21 23:34 80 99 03/26/21 23:29 79 99 03/26/21 23:24 79 99 03/26/21 23:19 80 99 03/26/21 23:14 83 99 03/26/21 23:12 78 125/81 0629/21 23:09 73 100 03/26/21 23:04 73 100 03/26/21 22:59 78 100 03/26/21 22:56 77 153/80 03/26/21 22:54 74 99 03/26/21 22:49 74 99 03/26/21 22:44 75 99 03/26/21 22:41 71 154/78 03/26/21 22:39 76 99 03/26/21 22:34 74 99 03/26/21 22:29 81 99 03/26/21 22:26 78 154/78 03/26/21 22:24 78 100 03/26/21 22:19 79 100 03/26/21 22:14 76 98 03/26/21 22:11 78 152/72 03/26/21 22:09 80 98 03/26/21 22:04 79 99 03/26/21 21:59 80 99 03/26/21 21:56 80 149/70 03/26/21 21:54 84 99 03/26/21 21:49 83 99 03/26/21 21:44 82 99 03/26/21 21:41 81 150/69 03/26/21 21:39 84 99 03/26/21 21:34 82 99 03/26/21 21:29 87 99 03/26/21 21:26 81 155/69 03/26/21 21:24 84 99 03/26/21 21:21 81 147/65 03/26/21 21:19 83 99 03/26/21 21:16 87 143/65 03/26/21 21:14 82 99 03/26/21 21:12 84 151/67 03/26/21 21:09 88 98 03/26/21 21:06 77 144/64 03/26/21 21:04 64 99 03/26/21 21:00 79 175/78 03/26/21 20:59 83 99 03/26/21 20:58 56 L 143/65 03/26/21 20:56 54 L 142/60 03/26/21 20:54 53 L 157/71 100 03/26/21 20:53 50 L 149/85 03/26/21 20:52 49 L 171/76 03/26/21 20:51 49 L 182/79 03/26/21 20:49 49 L 100 03/26/21 20:48 47 L 195/89 03/26/21 20:46 47 L 164/75 03/26/21 20:44 45 L 179/78 100 03/26/21 20:43 47 L 185/91 03/26/21 20:39 47 L 185/91 100 03/26/21 20:32 47 L 100 03/26/21 20:27 47 L 100 03/26/21 20:22 47 L 99 03/26/21 20:20 46 L 168/74 03/26/21 20:17 49 L 99 03/26/21 20:15 98 F 17 03/26/21 20:12 50 L 99 03/26/21 20:09 48 L 169/76 03/26/21 20:07 48 L 100 03/26/21 20:02 52 L 99 03/26/21 19:57 72 100 03/26/21 19:52 49 L 100 03/26/21 19:47 49 L 100 03/26/21 19:42 52 L 100 03/26/21 19:37 49 L 100 03/26/21 19:32 47 L 100 03/26/21 19:27 51 L 100 03/26/21 19:22 51 L 100 03/26/21 19:17 56 L 100 03/26/21 19:12 51 L 100 03/26/21 19:07 50 L 100 03/26/21 19:05 48 L 157/71 03/26/21 19:02 65 100 03/26/21 18:57 47 L 100 03/26/21 18:52 47 L 100 03/26/21 18:47 49 L 100 03/26/21 18:44 46 L 173/82 03/26/21 18:42 48 L 100 03/26/21 18:37 45 L 100 03/26/21 18:32 48 L 100 03/26/21 18:27 61 100 03/26/21 18:22 51 L 100 03/26/21 18:17 48 L 100 03/26/21 18:15 47 L 172/77 03/26/21 18:14 45 L 172/77 03/26/21 18:12 46 L 87 03/26/21 18:07 48 L 98 03/26/21 18:05 44 L 179/78 03/26/21 18:02 47 L 100 03/26/21 17:58 46 L 182/83 03/26/21 17:57 46 L 100 Intake and Output 03/26/21 03/26/21 03/27/21 15:59 23:59 07:59 Intake Total 283.333 478.75 Output Total 1200 3674 Balance -916.667 -3195.25 Intake: IV 283.333 478.75 Lactated Ringers 1,000 ml 283.333 478.75 @ 125 mls/hr IV DIRECT CAR Rx#:[id number] Output: Urine 1200 3674 Indwelling Catheter 1200 3674 Other: Total, Output Amount 600 350 Weight 180 lb - Exam Breasts: Present: deferred Cardiovascular: Present: Regular rate Lungs: Present: Normal air movement Abdomen: Present: normal appearance, soft Vulva: both: normal Uterus: Present: normal Deep Tendon Reflex Grade: Normal +2 Incision: Present: normal, dry, intact - Labs Labs: Abnormal lab results 03/26/21 03/26/21 03/26/21 Range/Units 17:42 17:42 21:54 Hgb 9.4 L (10.1-14.3) gm/dl MCV 69 L (79-97) fl MCH 20 L (28-32) pg MCHC 29 L (30-34) % RDW 24.6 H (13.2-15.2) % Uric Acid 8.0 H (3.5-7.6) mg/dL Magnesium 4.00 H (1.7-2.3) mg/dL Lactate Dehydrogenase 264 H (91-180) units/L 03/27/21 Range/Units 05:26 Hgb (10.1-14.3) gm/dl MCV (79-97) fl MCH (28-32) pg MCHC (30-34) % RDW (13.2-15.2) % Uric Acid (3.5-7.6) mg/dL Magnesium 5.60 H (1.7-2.3) mg/dL Lactate Dehydrogenase (91-180) units/L
--- NOTE | 2021-03-27 09:23 | Cat Scan Report ---
CT head/brain wo/w con INDICATION: headache OMNI 300 100 ML. TECHNIQUE: Routine CT head. All CT scans at this location are performed using CT dose reduction for A SHIVANI by means of automated exposure control. COMPARISON: None. FINDINGS: Intracranial: Olivas-white matter differentiation is maintained. No intracranial hemorrhage. No extra a xial collection. No hydrocephalus. No herniation. No abnormal enhancement. Sinuses: Paranasal sinuses and mastoid air cells are essentially clear. Orbits: Globes are intact. Calvarium: No acute fracture. IMPRESSION: 1. No significant intracranial abnormality. Signer Name: Brigido Diaz MD Signed: 03/27/2021 9:19 AM Workstation Name: [id number]
--- NOTE | 2021-03-27 09:58 | Electrocardiograph Report ---
[facility] Test Date: 2021-03-26 Test Time: 22:13:28 Pat Name: KATHERINE SESAY Department: Room: 2004 09 Gender: F Audio Visual Project Manager: [email or web address] : 1990 Requested By: PATTI NATHAN Order Number: [id number] Reading MD: Alexander Aleman Measurements Intervals [place] Rate: 77 P: 53 HI: 125 QRS: 67 QRSD: 90 T: 31 QT: 405 QTc: 457 Interpretive Statements Sinus rhythm No previous ECG available for comparison Electronically Signed On 03-27-2021 9:58:17 EDT by Alexander Aleman
[2021-03-27] MEDS ORDERED: NIFEdipine XL 60 MG TAB PO SCH (10:00)
[2021-03-27] MEDS: FAMOTIDINE 20 MG TAB PO SCH ×2 (10:36→22:04)
[2021-03-27] MEDS: NIFEdipine XL 30 MG TAB PO SCH (10:37)
[2021-03-27] MEDS ORDERED: oxyCODONE /ACETAMINOPHEN 5-325MG TAB PO STA (16:34)
[2021-03-27] MEDS: MAGNESIUM SULFATE 40GM/1000ML 40 GM/1,000 ML BAG IV SCH (16:58)
[2021-03-28] MEDS: ACETAMINOPHEN 500 MG TAB PO PRN (05:38)
--- NOTE | 2021-03-28 06:07 | Discharge Summary ---
Providers - Providers Date of Admission: 03/26/21 17:20 Date of discharge: 03/28/21 (pt desires d/c) Attending physician: NUHA HERRING Primary care physician: SUMMER INTERN Hospitalization Reason for admission: other (PP PreE) Hospital course: Pt sent from OB office with elevated BP and XIE. Received 24hr MGSO4 and started on Procardia 30mg QD. Her pressures now appear to be well controlled. Pt states XIE is much better. Pt did have a CT of the brain with no abnormal findings. Awake this AM Has been pumping and saving breast milk. BP 120/70-60. Denies XIE, blurred vision, chest pain. Doing well P: d/c later today RX to continue Procardia appt made for 04-02-21 @ 1550 for f/u in office Condition at discharge: Good Disposition: DC-01 TO HOME OR SELFCARE - Discharge Diagnoses (1) Pre-eclampsia, Status: Acute Comment: Follow up in office Thursday04-02-21 @ 1500 Pt aware appt has been made Plan - Discharge Medications Prescriptions: NIFEdipine XL [Procardia Xl] 30 mg PO QDAY #30 tablet - Provider Discharge Summary Activity: routine, no sex for 6 weeks, no heavy lifting 4 weeks, no strenuous e xercise Diet: other (NO SALT Drink 64ounces of WATER everyday) Instructions: routine Additional instructions: [] Smoking cessation referral if applicable(refer to patient education folder for contact #) [] Refer to [facility] Booklet Call your doctor immediately for: * Fever > 100.5 * Heavy vaginal bleeding ( >1 pad per hour) * Severe persistent headache * Shortness of breath * Reddened, hot, painful area to leg or breast * Drainage or odor from incision. * Keep incision clean and dry at all times and follow doctor's instructions regarding bathing/showering - Follow up plan Follow up: PRIMARY CARE, [Primary Care Provider] - 7 Days YESENIA LAWLER CNM [Advanced Practice Nurse] - 04/02/21 3:00 pm (REST! Call [phone] with any headache, blurred vision, chest pain. Take your medication as prescribed. Call with any concerns. See you Thursday04-02-21 at 3:00PM in [place] office.)
[2021-03-28] MEDS: NIFEdipine XL 30 MG TAB PO SCH (09:09)
[2021-03-28] MEDS: FAMOTIDINE 20 MG TAB PO SCH (09:09)
[2021-03-28 11:47] VITALS: BP 121/63
== END 2021-03-28 12:55 | disposition home or self-care (01) | DRG 776 ==
LOC: UNDOADMIN 16:54 → 3A 16:54 → LD 17:20 → OB 03-27 23:51
PROVIDERS: ADMIT Obstetrics & Gynecology; ATTEND Obstetrics & Gynecology
DX: O14.95 Unspecified pre-eclampsia, complicating the puerperium (principal); Z79.899 Other long term (current) drug therapy
CPT/HCPCS: 36415; 70470; 80048; 81001; 82565; 83615; 83735; 84450; 84460; 84550; 85027; 85610; 85730; 86850; 86900; 86901; 93005; G0378; J0360; J3475; J7120; Q9967